=== PATIENT | female | born 1995 | race Asian ===

== ENCOUNTER 2016-06-27 01:58 | Emergency (ER) | payer OTHER ==
[~2016-06-27] VITALS: Ht 157.5 cm; Wt 56.7 kg
[~2016-06-27 01:58] MED LIST: ALPR1TAB3 PO; CLON0.5T3 PO; CTP/1 PO; DESV50TA PO; LEVOTAB3 PO; MIRT15TA3 PO; PENI-82 PO; TRAMTAB5 PO; TRAZ50TA35 PO; TRET15GE TOP
[2016-06-27 02:04] VITALS: TEMP 36.7; Ht 157.5 cm; Wt 56.7 kg
[2016-06-27] MEDS ORDERED: SODIUM CHLORIDE 0.9% 1000ML 1,000 ML IV STA (02:25)
[2016-06-27] MEDS ORDERED: PROCHLORPERAZINE 5 MG/ML 2 ML VIAL IV STA (02:25)
[2016-06-27] MEDS ORDERED: KETOROLAC TROMETHAMINE 30 MG/ML VIAL IV STA (02:25)
[2016-06-27] MEDS ORDERED: DiphenhydrAMINE HCL 50 MG/ML VIAL IV STA (02:25)
--- NOTE | 2016-06-27 02:36 | EMERGENCY ROOM VISIT NOTE ---
History Report prepared by Talya: Landry Phillips Under the Supervision of: Dr. Agnes Cardoso M.D. First contact with patient: 02:07 Chief Complaint: HEADACHE Stated Complaint: SEVERE HEAD AND NECK PAIN,SLIGHT NAUSEA History of Present Illness The patient is a 21 year old female who presents to the Emergency Room with complaints of a sudden headache starting around 2100 tonight. She states that she was walking back from class and she got a headache and neck pain. She denies being recently sick, visual changes, and she denies sinus pressure or fever. She states that she took 1000mg of Tylenol prior to arrival, and she states that she went to the hospital last year for possible meningitis. She was not given a lumbar puncture however. She additionally states that she takes control. Source of History: patient Onset: 2100 Position: head Timing: other (sudden) Associated Symptoms: + neck pain, No fevers Review of Systems See HPI for pertinent positives & negatives. A total of 10 systems reviewed and were otherwise negative. Past Medical & Surgical Medical Problems: (1) Hypokalemia (2) Mood disorder (3) No Known Active Medical Problems Family History Patient reports no known family medical history. Social History Smoking Status: Current Every Day Smoker Alcohol Use: occasionally Marital Status: single Housing Status: lives with roommate Occupation Status: [employer] student Current/Historical Medications Scheduled Lamotrigine (Lamictal), 100 MG PO DAILY Levonorgestrel-Ethinyl Estradi (Jolessa), 1 TAB PO DAILY Scheduled PRN Alprazolam (Xanax), 1 MG PO DAILY PRN for Anxiety Bismuth Subsalicylate (Pepto-Bismol), 262 MG PO QID PRN for GI Upset Clonazepam (Klonopin), 0.5 MG PO TID PRN for Anxiety Clonidine Hcl (Catapres), 0.1 MG PO TID PRN for Anxiety Trazodone Hcl (Trazodone), 50-100 MG PO HS PRN for Insomnia Allergies Coded Allergies: Lactose (Verified Adverse Reaction, Intermediate, GI UPSET, 06/27/16) Physical Exam Vital Signs Date Time Temp Pulse Resp B/P Pulse Ox O2 Delivery O2 Flow Rate FiO2 06/27/16 04:09 81 18 106/66 98 Room Air 06/27/16 02:04 36.7 114 16 122/78 98 Room Air Physical Exam Vital signs reviewed. General: Well-appearing female, in no significant distress. HEENT: Neck discomfort with forward flexion. Tenderness to palpation over the trapezius muscles bilaterally. No scleral icterus, PERRLA, neck supple. Atraumatic. Cardiovascular: Regular rate and rhythm, no extra sounds. Pulmonary: Clear to auscultation bilaterally, normal work of breathing. Abdomen: Soft, nontender, nondistended, positive bowel sounds. Musculoskeletal: Atraumatic, no peripheral edema. Neurologic: Patient awake alert and oriented x 3, full strength in all 4 extremities. Cranial nerves 2 through 12 grossly intact. Skin: Warm, dry, no rash Medical Decision & Procedures ER Provider Diagnostic Interpretation: CT results as stated below per my review and radiologist interpretation: CT HEAD: No acute intracranial process Laboratory Results 06/27/16 02:35 Red Blood Count 4.31, Mean Corpuscular Volume 94.4, Mean Corpuscular Hemoglobin 32.5, Mean Corpuscular Hemoglobin Concent 34.4, Mean Platelet Volume 9.2, Neutrophils (%) (Auto) 52.6, Lymphocytes (%) (Auto) 38.8, Monocytes (%) (Auto) 7.6, Eosinophils (%) (Auto) 0.6, Basophils (%) (Auto) 0.3, Neutrophils # (Auto) 3.79, Lymphocytes # (Auto) 2.79, Monocytes # (Auto) 0.55, Eosinophils # (Auto) 0.04, Basophils # (Auto) 0.02 06/27/16 02:35 Test 06/27/16 02:35 White Blood Count 7.20 K/uL (4.8-10.8) Red Blood Count 4.31 M/uL (4.2-5.4) Hemoglobin 14.0 g/dL (12.0-16.0) Hematocrit 40.7 % (37-47) Mean Corpuscular Volume 94.4 fL (80-100) Mean Corpuscular Hemoglobin 32.5 pg (25-34) Mean Corpuscular Hemoglobin Concent 34.4 g/dl (32-36) Platelet Count 250 K/uL (130-400) Mean Platelet Volume 9.2 fL (7.4-10.4) Neutrophils (%) (Auto) 52.6 % Lymphocytes (%) (Auto) 38.8 % Monocytes (%) (Auto) 7.6 % Eosinophils (%) (Auto) 0.6 % Basophils (%) (Auto) 0.3 % Neutrophils # (Auto) 3.79 K/uL (1.4-6.5) Lymphocytes # (Auto) 2.79 K/uL (1.2-3.4) Monocytes # (Auto) 0.55 K/uL (0.11-0.59) Eosinophils # (Auto) 0.04 K/uL (0-0.5) Basophils # (Auto) 0.02 K/uL (0-0.2) RDW Standard Deviation 43.7 fL (36.4-46.3) RDW Coefficient of Variation 12.5 % (11.5-14.5) Immature Granulocyte % (Auto) 0.1 % Immature Granulocyte # (Auto) 0.01 K/uL (0.00-0.02) Anion Gap 8.0 mmol/L (3-11) Est Creatinine Clear Calc Drug Dose 86.6 ml/min Estimated GFR () 119.4 Estimated GFR (Non- 103.0 BUN/Creatinine Ratio 10.6 (10-20) Calcium Level 8.9 mg/dl (8.5-10.1) Total Bilirubin 0.3 mg/dl (0.2-1) Direct Bilirubin 0.1 mg/dl (0-0.2) Aspartate Amino Transf (AST/SGOT) 12 U/L (15-37) Alanine Aminotransferase (ALT/SGPT) 17 U/L (12-78) Alkaline Phosphatase 48 U/L (45-117) Total Protein 7.2 gm/dl (6.4-8.2) Albumin 4.0 gm/dl (3.4-5.0) Laboratory results per my review. Medications Administered Medications (Trade) Dose Ordered Sig/Jamel Route Start Time Stop Time Status Last Admin Dose Admin Ketorolac Tromethamine (Toradol Inj) 30 mg NOW STAT IV 06/27/16 02:25 06/27/16 02:28 DC 06/27/16 02:45 30 MG Prochlorperazine Edisylate (Compazine Inj) 10 mg NOW STAT IV 06/27/16 02:25 06/27/16 02:28 DC 06/27/16 02:49 10 MG Diphenhydramine HCl 25 mg 25 mg NOW STAT IV 06/27/16 02:25 06/27/16 02:28 DC 06/27/16 02:46 25 MG Sodium Chloride (Nss 1000ml) 1,000 ml @ 999 mls/hr Q1H1M STAT IV 06/27/16 02:25 06/27/16 03:25 DC 06/27/16 02:46 999 MLS/HR ED Course 0223: Past medical records reviewed. The patient was evaluated in room B10. A complete history and physical examination was performed. 0225: Sodium Chloride 1000 ml @ 999 mls/hr IV, Benadryl Inj 25mg IV, Compazine Inj 10mg IV, Toradol Inj 30 mg IV 0409: Upon reevaluation, the patient appeared to have improvement of her symptoms. I discussed findings with her. She verbalized agreement of the treatment plan. She was discharged home. Medical Decision DDx: Intracranial hemorrhage, intracranial mass, migraine headache, tension headache , sinusitis, meningitis This pt was evaluated and appeared to be in no distress. IV access was obtained and lab work was drawn. Pt was placed on the monitor technician. Pt was given IV toradol, compazine and benadryl. Pt was hydrated with NSS. Lab work reveals a normal CBC, chem profile. CT head is negative. PT was informed of the findings and was feeling much improved. She was d/c to f/u with PCP this week for reevaluation. She will return to the ED for worsening of symptoms or any medical concerns. Impression Primary Impression: Headache Scribe Attestation The scribe's documentation has been prepared under my direction and personally reviewed by me in its entirety. I confirm that the note above accurately reflects all work, treatment, procedures, and medical decision making performed by me. Departure Information Dispostion Home / Self-Care Referrals No Doctor, Assigned (PCP) Forms HOME CARE DOCUMENTATION FORM, IMPORTANT VISIT INFORMATION Patient Instructions My [facility] Additional Instructions Diagnosis: Headache Tylenol 650 mg every 6 hours as needed for pain or fever. Ibuprofen 600 mg every 6 hours as needed for pain with food. Drink plenty of clear fluids. Follow-up with your physician this week for reevaluation. Return to the ER for worsening of symptoms or any medical concerns. Problem Qualifiers Primary Impression: Headache Headache type: unspecified Headache chronicity pattern: acute headache Intractability: not intractable Qualified Codes: R51 - Headache
[2016-06-27 02:48] LABS: BASO % 0.3 %; BASO ABS # 0.02 K/uL (0-0.2); COMPLETE YES; EOS % 0.6 %; HEMATOCRIT 40.7 % (37-47); IG% 0.1 %; LYMPH % 38.8 %; LYMPH ABS # 2.79 K/uL (1.2-3.4); MEAN CELL VOLUME 94.4 fL (80-100); MEAN CORPUSCULAR HEMOGLOBIN 32.5 pg (25-34); MEAN CORPUSCULAR HGB CONC 34.4 g/dl (32-36); MEAN PLATELET VOLUME 9.2 fL (7.4-10.4); MONO % 7.6 %; NEUT % 52.6 %; PLATELET COUNT 250 K/uL (130-400); RED BLOOD COUNT 4.31 M/uL (4.2-5.4)
[2016-06-27] MEDS ORDERED: LAMO100T16 PO (02:52)
[2016-06-27] MEDS ORDERED: BISM262C6 PO (02:54)
[2016-06-27 03:17] LABS: BUN/CREATININE RATIO 10.6 (10-20); CALCIUM 8.9 mg/dl (8.5-10.1); CREATININE 0.82 mg/dl (0.60-1.20); POTASSIUM 3.6 mmol/L (3.5-5.1)
[2016-06-27 06:09] VITALS: BP 98/54; PULSE 89; O2SAT 100
--- NOTE | 2016-06-27 06:39 | DIAGNOSTIC IMAGING REPORT ---
CT HEAD WITHOUT CONTRAST (CT) CLINICAL HISTORY: Severe headache and nausea COMPARISON STUDY: No previous studies for comparison. TECHNIQUE: Axial CT of the brain is performed from the vertex to the skull base. IV contrast was not administered for this examination. CT DOSE: 537.48 mGy.cm FINDINGS: No intra or extra-axial mass lesions are visualized. There is no CT evidence of acute cortical infarction. There is no evidence of midline shift. There is no acute hemorrhage. No calvarial fractures are visualized. There is no evidence of pathologic ventricular dilatation. There is no evidence of acute sinusitis IMPRESSION: Normal noncontrast head CT. Electronically signed by: Harpal Padilla M.D. 06/27/2016 6:37 AM Dictated Date/Time: 06/27/2016 6:36 AM
== END 2016-06-27 06:33 | disposition home or self-care (01) ==
LOC: C.EDB 01:59
DX: R51 Headache (principal); M54.2 Cervicalgia; F39 Unspecified mood [affective] disorder; F17.200 Nicotine dependence, unspecified, uncomplicated; Z79.3 Long term (current) use of hormonal contraceptives